=== PATIENT | female | born 1995 | race Caucasian/White ===

== ENCOUNTER 2020-10-13 05:45 | Inpatient (IN) ==
[2020-10-13] MEDS ORDERED: CITRIC ACID/SODIUM CITRATE 30 ML UDCUP PO ONE (05:57)
[2020-10-13] MEDS ORDERED: FAMOTIDINE 20 MG/2 ML VIAL IV ONE (05:57)
[2020-10-13] MEDS ORDERED: ceFAZolin 2,000 MG in PREMIX 1 EACH IV ONE (05:57)
[2020-10-13] MEDS ORDERED: LACTATED RINGERS 1,000 ML IV ONE (05:58)
[2020-10-13] MEDS: LACTATED RINGERS 1,000 ML IV SCH ×4 (06:10→23:01)
[2020-10-13] MEDS ORDERED: TRANEXAMIC ACID 1,000 MG/10 ML VIAL ONE ×2 (06:17→07:20)
[2020-10-13] MEDS ORDERED: miSOPROStoL 200 MCG TABLET ONE (06:17)
[2020-10-13] MEDS ORDERED: SODIUM CHLORIDE 0.9% 100 ML IV ONE (06:17)
[2020-10-13] MEDS ORDERED: OXYTOCIN/LR 20 UNIT/1,000 ML BAG IV ONE ×2 (06:17→10:09)
[2020-10-13 06:36] LABS: Basophils % 0.3 % (0.0-0.8); Eosinophils # 0.1 10*3/uL (0.0-0.87); Eosinophils % 1.3 % (0.00-10.9); Hematocrit 35.2 VOL% (35.7-47.0); Immature Granulocytes % 0.8 %; Immature Granulocytes Absolute 0.06 #; Lymphocytes # 1.6 10*3/uL (1.4-4.0); Lymphocytes % 21.2 % (21.3-54.2); Mean Corpuscular HGB Conc 34.1 GM/DL (32-36); Mean Corpuscular Volume 89.3 FL (87-102); Mean Platelet Volume 9.3 FL (9.6-12.0); Monocytes % 7.7 % (1.7-12.7); Neutrophils % 68.7 % (38.7-73.9); Platelet Count 211 T/CUMM (130-400); Red Blood Count 3.94 MC/CUMM (3.8-5.5); Red Cell Distribution Width 14.3 % (9.3-17.3); White Blood Count 7.6 T/CUMM (4-12)
[2020-10-13] MEDS ORDERED: MORPHINE 10 MG/10 ML VIAL ONE (07:01)
[2020-10-13] MEDS ORDERED: BUPIVACAINE SPINAL 0.75% 2 ML AMP SPINAL ONE (07:01)
[2020-10-13] MEDS ORDERED: ONDANSETRON 4 MG/2 ML VIAL ONE (07:01)
[2020-10-13] MEDS ORDERED: fentaNYL 100 MCG/2 ML VIAL ONE (07:01)
[2020-10-13] MEDS ORDERED: PHENYLEPHRINE 1 MG/10 ML SYRINGE IV ONE (07:01)
[2020-10-13] MEDS ORDERED: METHYLERGONOVINE 0.2 MG/1 ML AMP ONE (07:20)
[2020-10-13] MEDS ORDERED: CARBOPROST TROMETHAMINE 250 MCG/ML AMP IM ONE (07:21)
[2020-10-13 08:13] LABS: Bilirubin,Urine Negative (Negative); Blood, Urine Negative (Negative); Glucose,Urine (UA) Negative (Negative); Ketones,Urine Negative (Negative); Nitrite,Urine Negative (Negative); Protein,Urine Negative; RBC,Urine <1 /HPF (0-4); Urine Appearance CLEAR (Clear); Urine Color Yellow (Yellow); Urine Specific Gravity 1.006 (1.001-1.035); Urine Urobilinogen < 2.0 EU/DL (0.2-1.0); WBC,Urine 1 /HPF (0-6)
[2020-10-13 08:15] LABS: Cord Arterial Blood HCO3 22.3 MMOL/L
[2020-10-13] MEDS ORDERED: DEXAMETHASONE 4 MG/1 ML VIAL ONE (08:16)
[2020-10-13] MEDS ORDERED: propofoL 200 MG/20 ML VIAL IV ONE (08:16)
[2020-10-13] MEDS ORDERED: BUPIVACAINE MPF 0.25% 30 ML VIAL ONE ×2 (08:17)
[2020-10-13 08:18] LABS: Cord Venous Blood PCO2 43.1 MMHG; Cord Venous Blood PO2 35.2
[2020-10-13] MEDS ORDERED: ONDANSETRON 4 MG/2 ML VIAL IV PRN ×2 (09:42→10:09)
[2020-10-13] MEDS ORDERED: HYDROmorphone 2 MG/1 ML VIAL IV PRN (09:42)
[2020-10-13] MEDS ORDERED: diphenhydrAMINE 50 MG/1 ML VIAL IV PRN (09:42)
[2020-10-13] MEDS ORDERED: hydrOXYzine HCL 25 MG/1 ML VIAL IM PRN (09:42)
[2020-10-13] MEDS ORDERED: RHO(D) IMMUNE GLOBULIN 300 MCG SYRINGE IM ONE (10:09)
[2020-10-13] MEDS ORDERED: LANOLIN 50% CREAM 0.3 OZ TUBE TOP PRN (10:09)
[2020-10-13] MEDS ORDERED: HYDROCORTISONE 2.5% RECTAL CREAM 30 GM TUBE TOP PRN (10:09)
[2020-10-13] MEDS ORDERED: oxyCODONE/ACETAMINOPHEN 5-325 MG TABLET PO PRN (10:09)
[2020-10-13] MEDS ORDERED: MEASLES/MUMPS/RUBELLA VACCINE 0.5 ML VIAL SUBCUT ONE (10:09)
[2020-10-13] MEDS ORDERED: DIPH/TET/ACEL PERT BOOSTER VACCINE 0.5 ML VIAL IM ONE (10:09)
[2020-10-13] MEDS ORDERED: BENZOCAINE 20%/MENTHOL 0.5% SPRAY 56 GM CAN TOP PRN (10:09)
[2020-10-13] MEDS ORDERED: ACETAMINOPHEN 325 MG TABLET PO PRN (10:09)
[2020-10-13] MEDS ORDERED: WITCH HAZEL PADS 100/JAR TOP PRN (10:09)
[2020-10-13] MEDS ORDERED: BISACODYL 10 MG SUPP RECTAL PRN (10:09)
[2020-10-13] MEDS: ceFAZolin 1,000 MG in SYRINGE 1 EACH IV SCH (16:10)
[2020-10-13] MEDS: IBUPROFEN 800 MG TABLET PO PRN (17:38)
[2020-10-13] MEDS: DOCUSATE SODIUM 100 MG CAPSULE PO SCH (21:37)
[2020-10-14] MEDS: ceFAZolin 1,000 MG in SYRINGE 1 EACH IV SCH (00:10)
[2020-10-14] MEDS: oxyCODONE/ACETAMINOPHEN 5-325 MG TABLET PO PRN ×4 (03:40→21:45)
[2020-10-14] MEDS: IBUPROFEN 800 MG TABLET PO PRN ×3 (03:40→21:45)
[2020-10-14 07:43] LABS: Basophils % 0.1 % (0.0-0.8); Eosinophils # 0.3 10*3/uL (0.0-0.87); Hematocrit 23.4 VOL% (35.7-47.0); Immature Granulocytes % 0.8 %; Immature Granulocytes Absolute 0.08 #; Lymphocytes # 0.9 10*3/uL (1.4-4.0); Mean Corpuscular HGB Conc 34.2 GM/DL (32-36); Mean Corpuscular Volume 91.1 FL (87-102); Monocytes % 5.6 % (1.7-12.7); Neutrophils % 81.5 % (38.7-73.9); Platelet Count 186 T/CUMM (130-400); Red Cell Distribution Width 14.6 % (9.3-17.3); White Blood Count 9.7 T/CUMM (4-12)
[2020-10-14 07:52] LABS: Red Blood Count 2.57 MC/CUMM (3.8-5.5)
[2020-10-14] MEDS: DOCUSATE SODIUM 100 MG CAPSULE PO SCH ×2 (08:14→21:45)
[2020-10-14] MEDS: FERROUS SULFATE 325 MG TABLET PO SCH (08:14)
[2020-10-14] MEDS: MAGNESIUM HYDROXIDE SUSP 30 ML UDCUP PO PRN ×2 (15:11→21:45)
[2020-10-14] MEDS: SIMETHICONE CHEW 80 MG TABLET PO PRN (15:11)
[2020-10-15] MEDS: oxyCODONE/ACETAMINOPHEN 5-325 MG TABLET PO PRN (06:26)
[2020-10-15] MEDS: SIMETHICONE CHEW 80 MG TABLET PO PRN (06:31)
[2020-10-15 08:05] VITALS: BP 131/80
[2020-10-15] MEDS: DOCUSATE SODIUM 100 MG CAPSULE PO SCH (09:20)
[2020-10-15] MEDS: FERROUS SULFATE 325 MG TABLET PO SCH (09:20)
[2020-10-15] MEDS: IBUPROFEN 800 MG TABLET PO PRN (10:10)
== END 2020-10-15 12:05 | disposition home or self-care (01) | DRG 540 ==
LOC: N.LD 05:45 → N.OB 11:29
PROVIDERS: ADMIT Specialist; ATTEND Specialist
PROC: LDCSECT (ICD-10-PCS; 2020-10-13 07:30)